=== PATIENT | female | born 1975 | race African-American/Black ===

== ENCOUNTER 2021-02-03 11:20 | Observation (INO) | payer BC ==
[~2021-02-03] VITALS: Ht 162.6 cm; Wt 75.5 kg
[2021-02-03] VITALS (13 sets, daily range): BP systolic 117–135; BP diastolic 57–75; Ht 162.6 cm; Wt 75.5 kg
[2021-02-03 12:03] LABS: CALC OSMOLALITY 270 mosm/kg (275-300); CALCIUM 8.6 mg/dL (8.5-10.1); CARBON DIOXIDE 20.9 mmol/L (21.0-32.0); CHLORIDE - SERUM 104 mmol/L (98-107); CREATININE - SERUM 0.8 mg/dL (0.6-1.3); GLUCOSE 119 mg/dL (74-106); POTASSIUM - SERUM 3.6 mmol/L (3.5-5.1); SODIUM 136 mmol/L (136-145); UREA NITROGEN 8 mg/dL (7-18); eGFR NON AFRICAN AMERICAN 82 mL/min (90-120)
[2021-02-03 12:08] LABS: ALBUMIN 3.6 g/dL (3.4-5.0); ALKALINE PHOSPHATASE 52 U/L (30-120); ALT (SGPT) 9 U/L (10-68); BILIRUBIN - TOTAL 0.71 mg/dL (0.2-1.3); PROTEIN - SERUM 7.3 g/dL (6.4-8.2)
[2021-02-03 12:24] LABS: BASOPHILS 0.5 % (0-2); EOSINOPHILS 0 % (0-7); IMMATURE GRANULOCYTES 0.2 % (0-5); LYMPHOCYTE ABS# 0.34 10x3/uL (1.18-3.74); LYMPHOCYTES 8.1 % (15-50); MCHC 24.2 g/dL (31.0-37.0); MCV 62.5 fL (80.0-100.0); MONOCYTES 7.1 % (2-11); NEUTROPHIL ABS# 3.55 10x3/uL (1.56-6.13); NEUTROPHILS 84.1 % (40-80); PLATELET COUNT 108 10x3/uL (130-400); RBC 2.64 10x6/uL (4.00-5.40); RDW 21.1 % (11.5-14.5); WBC 4.2 10x3/uL (4.8-10.8)
[2021-02-03 12:29] LABS: HEMATOCRIT 16.5 % (36.0-48.0); MCH 15.2 pg (26.0-34.0)
[2021-02-03 12:55] LABS: CKMB 0.2 U/L (0.0-3.6); CREATINE KINASE 40 UL (21-215)
[2021-02-03 12:57] LABS: TROPONIN-I < 0.017 ng/mL (0.000-0.060)
[2021-02-03 13:43] LABS: % SATURATION 3 % (15-55); IRON 13 ug/dl (35-150); TOTAL IRON BIND CAPACITY 395 ug/dl (260-445); UNSAT IRON BIND CAPACITY 382 ug/dl (150-375)
[2021-02-03 14:13] LABS: INR 1.24 (0.85-1.17); PROTIME 14.5 SECONDS (11.6-15.0)
[2021-02-03 14:25] LABS: BILIRUBIN NEGATIVE (NEGATIVE); KETONE NEGATIVE (NEGATIVE); NITRITE NEGATIVE (NEGATIVE); UROBILINOGEN NORMAL mg/dL (< 2)
[2021-02-03 14:26] LABS: SQUAMOUS EPITHELIAL 0-5 HPF (0-4); WHITE CELLS - URINE 2 HPF (0-4)
[2021-02-03 14:27] LABS: BACTERIA FEW HPF (NONE SEEN)
--- NOTE | 2021-02-03 14:58 | NUR ---
PATIENT ADMITTED TO ROOM 2216. BLOOD TRANSFUSING. ADMISSION COMPLETE. VSS. WILL CONTINUE TO MONITOR.
--- NOTE | 2021-02-03 15:06 | NUR ---
CALLED FOR TELEMETRY FOR PATIENT. ALSO PAGED HSPT TUTOR TO CLARIFY AMOUNT OF PRBC NEEDED TO TRANSFUSE. WAITING RESPONSE.
--- NOTE | 2021-02-03 16:15 | NUR ---
TELEMETRY PLACED ON PATIENT AND SECOND UNIT BLOOD TRANSFUSING. VSS.
--- NOTE | 2021-02-03 23:55 | NUR ---
TRANSFUSION OF 3RD UNIT PRBC'S COMPLETE. VITAL SIGNS STABLE. NO TRANSFUSION REACTION. STARTING TRANSFUSION OF 4TH UNIT NOW. WILL CONTINUE TO MONITOR.
[2021-02-04 00:10] VITALS: BP 123/70
[2021-02-04 00:25] VITALS: BP 149/83
[2021-02-04 00:40] VITALS: BP 143/90
--- NOTE | 2021-02-04 02:15 | NUR ---
TRANSFUSION OF 4TH UNIT PRBC'S COMPLETE. VITALS SIGNS STABLE. NO TRANSFUSION REACTION. FLUSHED AND SALINE LOCKED IV. BLOOD TUBING DISPOSED OF PROPERLY.
[2021-02-04 03:23] LABS: HEMATOCRIT 28.9 % (36.0-48.0); HEMOGLOBIN 8.7 g/dL (12-16)
[2021-02-04 04:29] VITALS: BP 126/62
[2021-02-04 05:44] LABS: HEMATOCRIT 28.5 % (36.0-48.0); HEMOGLOBIN 8.6 g/dL (12-16)
--- NOTE | 2021-02-04 07:54 | NUR ---
ALERT AND ORIENTED. ASSESSMENT COMPLETE. DENIES NEEDS. BED LOW. CALL [place] AND PERSONAL ITEMS IN REACH. WILL CONTINUE TO MONITOR.
[2021-02-04 09:04] VITALS: BP 138/79
--- NOTE | 2021-02-04 11:00 | NUR ---
DC EDUCATION PROVIDED BOTH WRITTEN AND VERBAL. VERBALIZED UNDERSTANDING. DENIES FURTHER QUESTIONS. STATES HAS APPOINTMENT WITH PCP [place] IN [place] TO FOLLOW UP. DENIES NEEDS. IV REMOVED FROM RIGHT AC WITH TIP INTACT. PATIENT DC HOME WITH WITH ALL BELONGINGS.
--- NOTE | 2021-02-04 17:24 | MORECARE ---
CASE MANAGEMENT DISCHARGE SUMMARY PATIENT: LYNETTE SHEPARD UNIT: [id number] ADM DATE: 02/03/21 AGE: 46 : 75 SEX: F ROOM/BED: [facility] AUTHOR: TREVOR,DOC PHYSICIAN: REFERRING PHYSICIAN: JAYLEEN ALFORD MD DATE OF SERVICE: 02/04/21 Case Management Discharge Planning Summary DCP REVIEW SUMMARY ANTICIPATED D/C DATE: EXPECTED LOS : CASE STATUS: DCP Not started INITIAL REVIEW: 02/03/2021 INITIAL REVIEWER: Kayla Zavaleta FINAL DISCHARGE DISPOSITION: : FINAL REVIEWER: FINAL REVIEW DATE: DCP [employer] QUESTION: ANSWER : PATIENT: LYNETTE SHEPARD ENCOUNTER: [id number] MEDICAL RECORD#: [id number] ADMISSION DATE: 02/03/2021 DISCHARGE DATE: 02/04/2021 ATTENDING MD: JAYLEEN REBOLLEDO : AGE: 46 MARITAL STATUS: M DC PLAN ID: [id number] FACILITY: [facility] PRINTED ON: 02/04/21 17:24 CT All edits/amendments must be made on the electronic document DICTATION DATE: 02/04/211723 [employer] PROGRAM DIRECTOR: DM 02/04/211723 RPT#: [id number] DC DATE:02/04/21 STATUS: DIS IN [facility] [address] [place] [address] END OF REPORT
== END 2021-02-04 11:01 | disposition home or self-care (01) ==
LOC: D.ER 11:20 → D.MS 13:14 → OBSVTIME 13:14 → D.MS 02-04 11:01
PROVIDERS: Family Medicine; ADMIT Emergency Medicine; ATTEND Emergency Medicine
DX: N94.6 Dysmenorrhea, unspecified (principal); D64.9 Anemia, unspecified; R42 Dizziness and giddiness; R53.1 Weakness; D61.818 Other pancytopenia; E61.1 Iron deficiency